=== PATIENT | female | born 1985 ===

== ENCOUNTER 2016-11-12 06:21 | Inpatient (IN) ==
[2016-11-12] MEDS ORDERED: ceFAZolin 2,000 MG in PREMIX 1 EACH IV ONE (06:34)
[2016-11-12] MEDS ORDERED: FAMOTIDINE 20 MG/2 ML VIAL IV ONE (06:34)
[2016-11-12] MEDS ORDERED: CITRIC ACID/SODIUM CITRATE 30 ML UDCUP PO ONE (06:34)
[2016-11-12 07:22] LABS: Basophils % 0.1 % (0.0-0.8); Eosinophils # 0.1 10*3/uL (0.0-0.87); Eosinophils % 1.5 % (0.00-10.9); Hematocrit 32.7 VOL% (35.7-47.0); Hemoglobin 10.9 GM/DL (12.0-16.0); Immature Granulocytes % 0.7 %; Immature Granulocytes Absolute 0.06 #; Lymphocytes # 1.2 10*3/uL (1.4-4.0); Mean Corpuscular HGB Conc 33.3 GM/DL (32-36); Mean Corpuscular Hemoglobin 26 PG (27-34); Mean Corpuscular Volume 78.2 FL (87-102); Mean Platelet Volume 11.6 FL (9.6-12.0); Monocytes # 0.6 10*3/uL (0.11-0.8); Monocytes % 6.3 % (1.7-12.7); Neutrophils # 6.8 10*3/uL (1.4-7.4); Neutrophils % 77.4 % (38.7-73.9); Platelet Count 189 T/CUMM (130-400); Red Blood Count 4.18 MC/CUMM (3.8-5.5); Red Cell Distribution Width 13.8 % (9.3-17.3); White Blood Count 8.8 T/CUMM (4-12)
[2016-11-12] MEDS ORDERED: LACTATED RINGERS 1,000 ML IV ONE (07:30)
[2016-11-12 08:24] LABS: Apearance,Urine CLEAR (Clear); Bilirubin,Urine Negative (Negative); Blood, Urine Small mg/dL (Negative); Glucose,Urine (UA) Negative (Negative); Ketones,Urine Negative (Negative); Mucus,Urine Occasional /LPF (Occasional); Nitrite,Urine Negative (Negative); Protein,Urine 30 MG/DL; RBC,Urine 36 /HPF (0-4); Squamous Epithelial Cell,Urine Occasional /HPF (0-10); Urine Color Yellow (Yellow); Urine Specific Gravity 1.023 (1.001-1.035); Urine Urobilinogen < 2.0 EU/DL (0.2-1.0); WBC,Urine 17 /HPF (0-6)
[2016-11-12] MEDS: LACTATED RINGERS 1,000 ML IV SCH ×2 (09:02→13:00)
[2016-11-12] MEDS ORDERED: OXYTOCIN 10 UNIT/ML VIAL ONE (10:00)
[2016-11-12] MEDS ORDERED: OXYTOCIN/LR 30 UNIT/1,000 ML BAG IV ONE (10:00)
[2016-11-12] MEDS ORDERED: ONDANSETRON 4 MG/2 ML VIAL IV PRN (13:31)
[2016-11-12] MEDS ORDERED: SIMETHICONE CHEW 80 MG TABLET PO PRN (13:31)
[2016-11-12] MEDS ORDERED: ACETAMINOPHEN 325 MG TABLET PO PRN (13:31)
[2016-11-12] MEDS ORDERED: MAGNESIUM HYDROXIDE SUSP 30 ML UDCUP PO PRN (13:31)
[2016-11-12] MEDS ORDERED: OXYTOCIN/LR 20 UNIT/1,000 ML BAG IV ONE (13:31)
[2016-11-12] MEDS ORDERED: RHO(D) IMMUNE GLOBULIN 300 MCG SYRINGE IM ONE (14:00)
[2016-11-12] MEDS ORDERED: LACTATED RINGERS 1,000 ML IV SCH (14:00)
[2016-11-12] MEDS ORDERED: fentaNYL 100 MCG/2 ML VIAL ONE (14:00)
[2016-11-12] MEDS ORDERED: MORPHINE 10 MG/10 ML VIAL ONE (14:01)
[2016-11-12] MEDS ORDERED: MIDAZOLAM 2 MG/2 ML VIAL ONE (14:01)
--- NOTE | 2016-11-12 14:04 | Anesthesia Post-Op ---
Anesthesia Post OP - Post Ansesthetic Evaluation Patient seen in post op: Yes Resp: within normal limits CV: within normal limits Mental: within normal limits Temp: within normal limits [id number]: within normal limits Nausea and Vomiting: within normal limits Pain: within normal limits
--- NOTE | 2016-11-12 14:05 | OB/GYN History & Physical ---
History of Present Illness Chief complaint: Scheduled and tubal History of present illness: Ms. Franklin is a 31 year old female Multi parous female at 39 weeks who presents for scheduled and tubal ligation. Risks benefits were thoroughly discussed she is in full agreement. Estimated weight greater than 8 pounds. heart tones are category 1 , occasional uterine contractions, no leaking or bleeding at this time. Home Medications Medication Instructions Recorded Confirmed Type Ferrous Sulfate Tab [Feosol 325 mg PO BID #60 tablet 07/28/15 Rx Original Tab] HYDROcodone/ACETAMIN 5-325 [[place] 2 tablet PO Q4H PRN #30 tablet 07/28/15 Rx 5-325] Ibuprofen Tab [Motrin Tab] 800 mg PO Q8H PRN #30 tablet 07/28/15 Rx Allergies Allergy/AdvReac Type Severity Reaction Status Date / Time No Known Allergies Allergy Verified 07/26/15 03:50 Medical,Surgical,& Family Hx - Medical History Endocrine: No history of: Endocrine Cancer Reproductive: No history of: Ectopic , Complication - Surgical History Cardiac Surgeries: Patient Denies: Cardiac Catheterization Neurologic Surgeries: Patient denies: Neurologic Surgery HEENT Surgeries: Patient denies: Tonsilectomy & Adenoidectomy Abdominal Surgeries: Patient denies: Abdominal Surgery Reproductive Surgeries: Surgical HX of;: Section Patient denies;: Hysterectomy, Tubal Ligation - Social History 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 General appearance: no acute distress - Antepartum / Post Antepartum Exam Cervix - Dilatation: Thick and closed - Head Head exam: Present: normal inspection - Eye Eye exam: Present: EOMI - ENT ENT exam: Present: normal exam - Neck Neck exam: Present: normal inspection - Respiratory Respiratory exam: Present: clear to auscultation bilaterally - Breast Breasts: as per HPI Menstruation: as per HPI - Cardiovascular Cardiovascular exam: Present: regular rate and rhythm - GI/Abdominal GI/Abdominal exam: Present: normal bowel sounds - Extremities Exam Extremities exam: Present: normal inspection - Back Exam Back exam: Present: normal inspection - Neurological Exam Neurological exam: Present: alert, oriented X3 - Psychiatric Psychiatric exam: Present: normal affect - Skin Skin exam: Present: normal color Assessment and Plan (1) Previous section Status: Acute Assessment and plan: Term , scheduled and tubal ligation Current Visit: No Results - Labs CBC & BMP: 11/12/16 07:01 Quality Measures - VTE Contraindication to Pharmacological VTE Prophylaxis: Already on Theraputic Agent , No Prophylaxis Needed
--- NOTE | 2016-11-12 14:09 | Operative Note ---
Date of procedure: 11/12/16 Procedure: Preoperative diagnosis: Term , 39 weeks, elective sterilization Postoperative diagnosis: Same Anesthesia:[] Regional Estimated blood loss: [] 500 cc Surgeon: Dr. Louis Findings: [] Live 8 lbs. 6 oz. male, Apgars 8 at 1 minute 9 at 5 minutes , delivery time was 1319, placenta was delivered at 1320 Complications: None Procedure: Low transverse section The patient was taken to the operating suite heart tones were obtained prior to and after regional anesthesia was obtained. She was placed in supine position her abdomen was prepped and draped in usual manner for major abdominal surgery. Through an abdominal incision the skin, subcutaneous, fascial layer and peritoneal the abdomen was entered. The bladder flap was created and a low transverse incision was made.. Fluid was clear and normal amount X, Apgars, the placenta was delivered and sent to lab for further evaluation. Injected with intrauterine Pitocin. The first layer of the uterus was closed with #1 Vicryl in a continuous locking manner. Close to imbricate the first layer with #1 Vicryl. The peritoneum was approximated with #2-0 Vicryl.[Fallopian tubes were grasped with a Sutherland clamp. Into the 80s mesosalpinx was perforated. Proximal distal end of tube was ligated. Segment in between was excised. Cut edges were then cauterized.] All the last sponges and instruments were accounted for -2.) #2-0 Vicryl. Fascia was approximated with #0-0 Maxon.. The skin was approximated with lisbet. She tolerated procedure well and was taken to recovery room in stable condition. Surgeon / Physician: Christ Louis Results - Labs CBC & BMP: 11/12/16 07:01 Discharge Plan - Discharge Medications No Action Ferrous Sulfate Tab [Feosol Original Tab] 325 mg PO BID #60 tablet Ibuprofen Tab [Motrin Tab] 800 mg PO Q8H PRN #30 tablet PRN Reason: Pain Severe (8-10) HYDROcodone/ACETAMIN 5-325 [[place] 5-325] 2 tablet PO Q4H PRN #30 tablet PRN Reason: Pain Moderate (4-7) - Follow Up or Referral - Forms/Instructions
[2016-11-12] MEDS ORDERED: diphenhydrAMINE 50 MG/1 ML VIAL IV PRN (15:42)
[2016-11-12] MEDS ORDERED: hydrOXYzine HCL 25 MG/1 ML VIAL IM PRN (15:42)
[2016-11-12] MEDS ORDERED: HYDROmorphone 2 MG/1 ML VIAL IV PRN (15:42)
[2016-11-12 21:37] LABS: Basophils % 0.2 % (0.0-0.8); Eosinophils # 0.1 10*3/uL (0.0-0.87); Hematocrit 27.7 VOL% (35.7-47.0); Hemoglobin 9.3 GM/DL (12.0-16.0); Immature Granulocytes % 0.5 %; Immature Granulocytes Absolute 0.05 #; Lymphocytes # 1.1 10*3/uL (1.4-4.0); Lymphocytes % 11.2 % (21.3-54.2); Mean Corpuscular HGB Conc 33.6 GM/DL (32-36); Mean Corpuscular Hemoglobin 26 PG (27-34); Mean Corpuscular Volume 78.5 FL (87-102); Mean Platelet Volume 11.9 FL (9.6-12.0); Monocytes # 0.6 10*3/uL (0.11-0.8); Monocytes % 5.8 % (1.7-12.7); Neutrophils # 7.9 10*3/uL (1.4-7.4); Neutrophils % 81.3 % (38.7-73.9); Platelet Count 157 T/CUMM (130-400); Red Blood Count 3.53 MC/CUMM (3.8-5.5); Red Cell Distribution Width 13.7 % (9.3-17.3); White Blood Count 9.7 T/CUMM (4-12)
[2016-11-12] MEDS: DOCUSATE SODIUM 100 MG CAPSULE PO SCH (22:56)
[2016-11-13 05:45] LABS: Basophils % 0.1 % (0.0-0.8); Eosinophils # 0.1 10*3/uL (0.0-0.87); Eosinophils % 1.2 % (0.00-10.9); Hemoglobin 8.3 GM/DL (12.0-16.0); Immature Granulocytes % 0.5 %; Immature Granulocytes Absolute 0.04 #; Lymphocytes # 1.3 10*3/uL (1.4-4.0); Lymphocytes % 15.4 % (21.3-54.2); Mean Corpuscular HGB Conc 31.9 GM/DL (32-36); Mean Corpuscular Hemoglobin 25 PG (27-34); Mean Corpuscular Volume 79.3 FL (87-102); Mean Platelet Volume 12.1 FL (9.6-12.0); Monocytes # 0.6 10*3/uL (0.11-0.8); Monocytes % 6.9 % (1.7-12.7); Neutrophils # 6.2 10*3/uL (1.4-7.4); Neutrophils % 75.9 % (38.7-73.9); Platelet Count 157 T/CUMM (130-400); Red Blood Count 3.28 MC/CUMM (3.8-5.5); Red Cell Distribution Width 13.8 % (9.3-17.3); White Blood Count 8.1 T/CUMM (4-12)
[2016-11-13] MEDS: IBUPROFEN 800 MG TABLET PO PRN ×2 (06:37→19:40)
[2016-11-13] MEDS: DOCUSATE SODIUM 100 MG CAPSULE PO SCH ×2 (08:26→19:40)
[2016-11-13] MEDS: MULTIVITAMIN (PRENATAL) TABLET PO SCH (08:26)
[2016-11-13] MEDS ORDERED: SODIUM CHLORIDE 0.9% 250 ML IV PRN (10:36)
--- NOTE | 2016-11-13 10:39 | OB/GYN Progress Note ---
Assessment and Plan (1) Term Status: Acute Current Visit: Yes (2) Status post repeat low transverse section Status: Acute Assessment and plan: Initiate routine postop orders. 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 Generalized weakness and malaise. 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 - Constitutional Vitals: Vital Signs Temp Pulse Resp BP Pulse Ox Pulse Ox 11/13/16 07:52 99 F 89 18 101/57 95 11/13/16 06:00 18 11/13/16 04:00 18 11/13/16 02:00 18 11/12/16 22:00 18 11/12/16 20:20 81 18 125/75 98 11/12/16 20:00 18 11/12/16 19:20 97.8 F 79 18 128/73 98 11/12/16 18:20 84 20 132/72 95 11/12/16 17:50 97.2 F L 70 20 124/83 96 11/12/16 17:20 76 18 130/68 93 L General appearance: mild distress - Antepartum / Post Post Exam Breast: bilateral: normal Abdomen obstetrics: Present: bowel sounds normal Vagina: Present: normal moisture, discharge (Light lochia room) Uterus exam: Present: enlarged (Fundus firm and midline) - Gyencological / Post Surgical Post Surgical Exam Lungs: bilateral: normal Chest: Normal S1, Normal S2 Extremities 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: Present: normal Abdomen obstetrics progress note: Present: normal appearance, soft Incision OB: Present: normal, intact - Respiratory Respiratory exam: Present: clear to auscultation bilaterally - Cardiovascular Cardiovascular exam: Present: regular rate and rhythm - GI/Abdominal GI/Abdominal exam: Present: normal bowel sounds, soft - Extremities Exam Extremities exam: Present: normal inspection - Neurological Exam Neurological exam: Present: alert, oriented X3 - Psychiatric Psychiatric exam: Present: normal affect, normal mood - Skin Skin exam: Present: normal color, warm Results - Labs CBC & BMP: 11/13/16 05:01
[2016-11-13 20:50] LABS: Hematocrit 30.4 VOL% (35.7-47.0)
[2016-11-13] MEDS: FERROUS SULFATE 325 MG TABLET PO SCH (21:52)
[2016-11-14] MEDS: DOCUSATE SODIUM 100 MG CAPSULE PO SCH ×2 (02:27→08:42)
--- NOTE | 2016-11-14 07:38 | Discharge Summary ---
Hospital Course - Hospital Course Hospital Course: Status post section and bilateral tubal ligation at 39 weeks. Patient is ambulating, no shortness of breath, no chest pain, no palpitations Abdomen soft uterus is nice and firm incision sites intact Extremities well with no limits neurologic grossly intact assessment plan discharge today follow-up our office in 2 weeks. Diagnosis - Discharge Diagnosis (1) Previous section Status: Acute Discharge Plan - Discharge Data Condition at Discharge: Stable Discharge Diet: advance to your usual diet Activity: resume usual activities as tolerated Hygiene: no restrictions Weight Bearing at Discharge: full weight bearing Driving: not until seen by doctor Contact your physician if you experience:: fever over 101, Bleeding - Discharge Medications New HYDROcodone/ACETAMIN 5-325 [[place] 5-325] 1 tablet PO Q6H PRN #30 tablet PRN Reason: Pain Moderate (4-7) Ibuprofen Tab [Motrin Tab] 800 mg PO Q8H PRN #60 tablet PRN Reason: Pain Severe (8-10) Ferrous Sulfate Tab [Feosol Original Tab] 325 mg PO BID #60 tablet - Follow Up or Referral - Forms/Instructions Exam - Constitutional Vitals: Period Temp Pulse Resp BP Sys/Vaz Pulse Ox Last 24 Hr 97.3 F-100.2 F 77-109 17-20 98-134/53-72 95-99 Discharge Results Labs on day of discharge: Labs from last 24 hours 11/13/16 11/13/16 20:17 04:57 Hgb 10.0 L D Hct 30.4 L Blood Type Cancelled Antibody Screen Cancelled Crossmatch See Detail Blood Bank Comment Cancelled DS: Provider Date of admission: 11/12/16 06:21 Primary care physician: Lizett Kramer MD Attending physician on admission: Christ Louis MD Consults: 11/12/16 06:34 Consult to Anesthesiology [CONS] Routine Consulting Provider: Reason for Anesthesiology: Pre-op Clearance 11/12/16 13:32 Consult to Tool Marker [CONS] Routine Consult Tool Marker: Breast Feeding Discharging clinician: Christ Louis MD
[2016-11-14 07:46] VITALS: BP 103/57
[2016-11-14] MEDS: FERROUS SULFATE 325 MG TABLET PO SCH (08:42)
[2016-11-14] MEDS: MULTIVITAMIN (PRENATAL) TABLET PO SCH (08:42)
--- NOTE | 2016-11-14 11:18 | Pathology Report from [facility] ---
[facility] [place] ACCESSION # : [id number] PATIENT NAME : Sanjuana Rivera ORDERING DR : ALLEGRA FRIEDMAN MD CLINICAL HX: Repeat delivery - Term POST-OP DX: Same SPECIMEN INFO: #1 Right fallopian tube segment #2 Left fallopian tube segment GROSS DESCRIPTION: #1 R FALLOPIAN TUBE SEGMENT consists of a hyperemic pink-ruff segment of unfimbriated fallopian tube measuring 2.5 x 0.7 cm. A medical service representative section submitted in cassette #1.#2 L FALLOPIAN TUBE SEGMENT consists of a 1.7 x 0.5 cm pink-ruff segment of unfimbriated fallopian tube. A medical service representative section submitted in cassette #2. DIAGNOSIS FOR SANJUANA ROSARIO: #1 Completely transected fallopian tube, right.#2 Completely transected fallopian tube, left. COLLECTED DATE: 11/12/2016 [facility] REPORT DATE: 11/14/2016 ELECTRONICALLY SIGNED BY: Samm Liu M.D. 11/14/2016 - 9:51:14 [facility]
[2016-11-14] MEDS ORDERED: DIPH/TET/ACEL PERT BOOSTER VACCINE 0.5 ML VIAL IM ONE (12:14)
== END 2016-11-14 14:00 | disposition home or self-care (01) | DRG 540 ==
LOC: N.LD 06:21 → N.OB 17:23
PROVIDERS: ADMIT Obstetrics & Gynecology; ATTEND Obstetrics & Gynecology